=== PATIENT | male | born 1965 | race Caucasian/White ===

== ENCOUNTER 2019-12-28 08:08 | Outpatient (CLI) | payer OTHER ==
--- NOTE | 2019-12-28 11:16 | MRI ---
MRI BRAIN WITH AND WITHOUT CONTRAST: Date: 12/28/2019 HISTORY: 54-year-old male with heteronomous bilateral visual defect. Bilateral inferior nasal quadrant defect . Please evaluate optic chiasm area. TECHNIQUE: Multiple sequences obtained in axial, sagittal, and coronal planes; pre and post IV injection of gado linium-based contrast agent. In addition to the standard sequences, thin slice coronal T1, T2, and postcontrast T1 sequences were obtained through the orbits and sella turcica region. FINDINGS: The ventricles are normal in size and configuration. There is no restricted diffusion, abnormal intr aaxial enhancement, mass, midline shift or any other mass effect, recent intraaxial hemorrhage, or ex traaxial fluid collection. There are a few scattered punctate T2-hyperintensities in the cerebral whi te matter consistent with minimal chronic ischemic white matter changes due to mild microvascular ath erosclerosis. There is no suprasellar mass. There is no compression of the optic chiasm. No signal abnormality or a bnormal enhancement of the optic nerves. No intraorbital mass or abnormal enhancement. Extraocular mu scles are symmetrically normal. IMPRESSION: 1. Minimal chronic ischemic white matter changes. 2. Otherwise negative. jn[] POS: [facility]
== END 2019-12-28 08:09 | disposition home or self-care (01) ==
LOC: SCSMRI 08:08
PROVIDERS: ATTEND Ophthalmology
DX: H53.47 Heteronymous bilateral field defects (principal); G93.89 Other specified disorders of brain
CPT/HCPCS: 70553